=== PATIENT | female | born 1960 | race Two or more races ===

== ENCOUNTER 2017-02-07 20:44 | Emergency (ER) | payer OTHER ==
[2017-02-07] MEDS ORDERED: Ibuprofen 600 MG Tab PO ONE (21:20)
--- NOTE | 2017-02-07 21:29 | EDM.PDOC ---
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 As she passed through a doorway, her left fifth finger caught the doorframe and bent her finger all the way back. She presents with pain primarily to the distal phalanx of the left fifth finger. She also reports that her pain radiates up to her left elbow. She is otherwise uninjured. No prior left fifth finger injury. The patient reports respiratory difficulty and a rash to naproxen, however, she is able to take ibuprofen without difficulty. The patient does not have a PCP. - Related Data Allergies Allergy/AdvReac Type Severity Reaction Status Date / Time naproxen Allergy Respiratory Verified 02/07/17 21:13 Distress Home Meds: Home Meds . 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) Review of Systems - Review of Systems Review Of Systems: See Below Constitutional: Reports: No Symptoms Eyes: Reports: No Symptoms Ears: Reports: No Symptoms Nose: Reports: No Symptoms Mouth/Throat: Reports: No Symptoms Respiratory: Reports: No Symptoms Cardiovascular: Reports: No Symptoms GI/Abdominal: Reports: No Symptoms Genitourinary: Reports: No Symptoms Musculoskeletal: Reports: No Symptoms Skin: Reports: No Symptoms Neurological: Reports: No Symptoms Psychiatric: Reports: No Symptoms Trauma Exam - Physical Exam Exam: See Below Exam Limited By: No Limitations General Appearance: Reports: Alert, WD/WN, No Apparent Distress Extremities: Other (Mild swelling to the left fifth finger, when compared to the right, particularly of the distal phalanx. There is erythema to the distal phalanx, but not to the middle or proximal. Mild tenderness to the entire finger, particularly to the distal phalanx. The patient is able to flex her finger, but limited due to pain. Neurovascular status of the left fifth finger is intact.) ED TRAUMA EXTREMITY PROCEDURES - Joint Reduction Site: finger (L) Pre-procedure NV status: normal Post-procedure NV status: normal Technique: traction/counter traction Number of Attempts: 1 Post-reduction imaging: completely reduced, no fracture seen Joint Reduction Complications: No Course - Vital Signs Last Recorded V/S: Last Vital Signs Temp 36.4 C 02/07/17 21:02 Pulse 70 02/07/17 21:02 Resp 16 02/07/17 21:02 BP 147/75 H 02/07/17 21:02 Pulse Ox 97 02/07/17 21:02 - Orders/Labs/Meds Orders: Active Orders 24 hr Category Date Time Status Fingers Fifth Digit Lt F4 [CR] Stat Exams 02/07/17 21:19 Taken Fingers Fifth Digit Lt F4 [CR] Stat Exams 02/07/17 22:11 Taken Meds: Medications Discontinued Medications Generic Name Dose Route Start Last Admin Trade Name Freq PRN Reason Stop Dose Admin Ibuprofen 600 mg 02/07/17 21:20 02/07/17 21:24 Motrin PO 02/07/17 21:21 600 mg ONETIME ONE Administration - Radiology Interpretation Free Text/Narrative:: 3-view radiographs of the left 5th finger appears to demonstrate a posterior dislocation of the distal phalanx. No fracture identified. Formal read per the Radiologist pending. 3 view radiographs of the left 5th finger, post reduction, appear to demonstrate complete reduction of the distal phalanx. No fracture identified. Formal read per the Radiologist pending. - Re-Assessments/Exams Free Text/Narrative Re-Assessment/Exam: 02/07/17 22:47 The patient's distal phalanx was reduced, and an AlumaFoam splint was applied, putting the finger into moderate flexion. I will have the patient followup with Dr. Sanabria. A note for work will be provided. All questions answered. Departure - Departure Time of Disposition: 22:48 Disposition: Home, Self-Care 01 Condition: good Clinical Impression: Dislocated finger - Discharge Information Referrals: PCP,None [Primary Care Provider] - Mitch Sanabria MD [Physician] - Forms: ED Department Discharge, Return to Work/School Form Additional Instructions: You were seen in the emergency room after your left pinky finger was accidentally bent all the way backwards at work. Workup in the ER included x-rays of your finger. The x-rays showed that you had a dislocation of your distal phalanx. This was reduced (put back in place) in the ER. Your finger has been put into a splint. Do not remove the splint. The splint should not get wet. Take [id number] ibuprofen 2-3 tablets (400-600 mg) every 8 hours, with food, as needed for discomfort. Followup with the Orthopedic Surgeon Dr. Sanabria at the next available appointment. If any other problems, please do not hesitate to return to the ER. - My Orders Last 24 Hours: My Active Orders 02/07/17 21:19 Fingers Fifth Digit Lt F4 [CR] Stat 02/07/17 22:11 Fingers Fifth Digit Lt F4 [CR] Stat - Assessment/Plan Last 24 Hours: My Active Orders 02/07/17 21:19 Fingers Fifth Digit Lt F4 [CR] Stat 02/07/17 22:11 Fingers Fifth Digit Lt F4 [CR] Stat
--- NOTE | 2017-02-08 08:04 | CR ---
Left fifth finger: Three views of the left fifth finger were obtained. Dislocation is identified within the DIP joint of the fifth digit. Distal phalanx is dislocated posteriorly in relation to the proximal phalanx. No discrete fracture is appreciated on this exam. Impression: 1. Dislocated DIP joint. Diagnostic code #3
--- NOTE | 2017-02-08 08:04 | CR ---
Left fifth finger: Three views of left fifth finger were obtained. Comparison: Previous study performed earlier on the same date (9:22 PM). Mild joint space narrowing seen within the DIP and PIP joint. No fracture, dislocation or other bony abnormality is seen. Soft tissue swelling is noted. Impression: 1. Mild joint space narrowing noted within the DIP and PIP joints. 2. Soft tissue swelling. Previous dislocation has been reduced. Diagnostic code #2
== END 2017-02-07 23:00 | disposition home or self-care (01) ==
LOC: JD.ED 20:44
DX: S63.257A Unspecified dislocation of left little finger, initial encounter (principal); X58.XXXA Exposure to other specified factors, initial encounter; Y93.89 Activity, other specified; Y92.59 Other trade areas as the place of occurrence of the external cause; Y99.0 Civilian activity done for income or pay
CPT/HCPCS: 26770; 73140; 99284; A9270; 99283